=== PATIENT | female | born 1980 | race Caucasian/White ===

== ENCOUNTER 2016-06-23 20:26 | Emergency (ER) | payer OTHER ==
[~2016-06-23] VITALS: Ht 167.6 cm; Wt 61.2 kg
[~2016-06-23 20:26] MED LIST: MEDROL DOSEPAK1 PAC PO; MOTRIN800 MG PO; PERCOCET 325 MG1 TA2 PO; PYRIDIUM100 MG PO; XANAX0.5 MG PO; XYLOCAINE 2% UR; ZOLOFT25 MG PO
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
[2016-06-23 22:14] VITALS: BP 120/81
== END 2016-06-23 22:17 ==
LOC: ERH 20:26
DX: S00.511A Abrasion of lip, initial encounter (principal); W22.8XXA Striking against or struck by other objects, initial encounter; Y93.89 Activity, other specified; Y92.9 Unspecified place or not applicable
CPT/HCPCS: 90471; 90714